=== PATIENT | female | born 1975 | race Caucasian/White ===

== ENCOUNTER 2020-03-30 00:03 | Inpatient (IN) | payer MEDICARE, MEDICAID ==
[~2020-03-30] VITALS: Ht 175.3 cm; Wt 150.0 kg
[2020-03-30] MEDS ORDERED: dexamethasone sod phosphate 10mg/ml inj IV STA (00:25)
[2020-03-30] MEDS ORDERED: CefTRIAXone/D5W-Rocephin 1gm 50 ML IV ONE (00:25)
[2020-03-30] MEDS ORDERED: normal saline 1000ML IV soln IVB ONE (00:25)
[2020-03-30] MEDS ORDERED: vancomycin/NS 1 GM ADD-VANTAGE 250 ML IV ONE (00:25)
[2020-03-30] MEDS ORDERED: ketamine 50 mg/ml 10ml vial IV ONE (00:35)
[2020-03-30] MEDS ORDERED: ketamine 10mg/ml 20ml inj IV ONE (00:35)
[2020-03-30 00:42] LABS: CLARITY,URINE CLOUDY (Clear); COLOR,URINE YELLOW (Yellow); GLUCOSE, URINE NEGATIVE (Neg); KETONES,URINE NEGATIVE (Neg); LEUKOCYTE ESTERASE ,URINE SMALL (Neg); NITRITES, URINE POSITIVE (Neg); OCCULT BLOOD,URINE LARGE (Neg); PROTEIN,URINE 100 mg/dl (Neg); UROBILINOGEN,URINE 0.2 E.U/dL (0.2-1.0)
[2020-03-30 00:43] LABS: BASOPHILS # (AUTO) 0.1 X10'3 (0-0.2); BASOPHILS % (AUTO) 0.5 % (0-1); EOSINOPHILS % (AUTO) 0.2 % (0-6); HEMATOCRIT 38.2 % (35.0-45.0); HEMOGLOBIN 12.8 g/dl (12.0-16.0); LYMPHOCYTES % (AUTO) 14.6 % (21-51); MEAN CORPUSCULAR HEMOGLOBIN 30.2 PG (27.0-31.0); MEAN CORPUSCULAR HGB CONC 33.6 g/dL (33.0-36.5); MEAN CORPUSCULAR VOLUME 90.1 FL (78-98); MEAN PLATELET VOLUME 8.7 FL (7.4-10.4); MONOCYTES # (AUTO) 1.2 X10'3 (0-0.9); MONOCYTES % (AUTO) 8.9 % (2-12); NEUTROPHILS # (AUTO) 10.5 X10'3 (1.8-7.7); NEUTROPHILS % (AUTO) 75.8 % (42-75); PLATELET COUNT 331 X10'3 (140-440); RED BLOOD COUNT 4.24 X10'6 (4.20-5.60); WHITE BLOOD COUNT 13.8 X10'3 (4.5-11.0)
[2020-03-30 00:49] LABS: UA COLLECTION TYPE STRAIGHT CATH
[2020-03-30 00:50] LABS: BACTERIA,URINE 4+ /HPF (Neg); RBC,URINE 20-50 /HPF (0-2); WBC,URINE TNTC /HPF (0-4)
[2020-03-30 00:51] LABS: SQUAMOUS EPITHELIAL CELL,UR MODERATE /LPF (FEW); WBC CASTS 0-3 /LPF (NEGATIVE)
[2020-03-30 00:52] LABS: ACETAMINOPHEN < 2.0 UG/ML (10-30); ALANINE AMINOTRANSFERASE 92 U/L (12-78); ALKALINE PHOSPHATASE 131 IU/L (46-116); ANION GAP 17 (8-16); ASPARTATE AMINO TRANSFERASE 66 U/L (10-37); BILIRUBIN,TOTAL 0.4 MG/DL (0.1-1.0); BLOOD UREA NITROGEN 31 MG/DL (7-18); BUN/CREATININE RATIO 7.6 (6.6-38.0); CALCIUM 8.7 MG/DL (8.5-10.1); CHLORIDE 101 MMOL/L (99-107); CREATININE 4.08 MG/DL (0.40-0.90); ETHANOL < 0.010 GM/DL (0.0-0.010); GLUCOSE 174 MG/DL (70-104); POTASSIUM 3.5 MMOL/L (3.5-5.1); SODIUM 136 MMOL/L (135-145); TOTAL CARBON DIOXIDE 18.2 MMOL/L (24-32); TOTAL PROTEIN 8.1 G/DL (6.4-8.2); eGFR 12 ML/MIN
[2020-03-30 01:01] LABS: URINE AMPHETAMINE SCREEN NEGATIVE (Neg); URINE BARBITUATE SCREEN NEGATIVE (Neg); URINE BENZODIAZEPINES SCREEN NEGATIVE (Neg); URINE CANNABINOID SCREEN NEGATIVE (Neg); URINE COCAINE SCREEN NEGATIVE (Neg); URINE METHADONE SCREEN NEGATIVE (Neg); URINE OPIATE SCREEN NEGATIVE (Neg); URINE PHENCYCLIDINE SCREEN NEGATIVE (Neg)
[2020-03-30] MEDS ORDERED: potassium Cl 20 mEq SR tablet PO PRN (02:15)
[2020-03-30] MEDS ORDERED: potassium CL 10mEq/100ml bag 100 ML IV PRN ×2 (02:15)
[2020-03-30] MEDS ORDERED: HYDROcodone/acetaminophen 10/325mg tab PO PRN (02:15)
[2020-03-30] MEDS ORDERED: magnesium Cl slow-release 64mg tablet PO PRN (02:15)
[2020-03-30] MEDS ORDERED: normal saline 1000ml 1,000 ML IV SCH (02:15)
[2020-03-30] MEDS ORDERED: HYDROcodone/acetaminophen 5mg/325mg tablet PO PRN (02:15)
[2020-03-30] MEDS ORDERED: magnesium 4gm in 100ml NS 100 ML IV PRN (02:15)
[2020-03-30] MEDS ORDERED: mag hydrox/Alum hydrox/simeth 30ml oral suspension PO PRN (02:15)
[2020-03-30] MEDS ORDERED: ondansetron/PF 4mg/2ml inj IV PRN (02:15)
[2020-03-30] MEDS ORDERED: acetaminophen 325mg tablet PO PRN (02:15)
[2020-03-30] MEDS ORDERED: magnesium 2GM in 50ml NS 50 ML IV PRN (02:15)
[2020-03-30] MEDS: normal saline 1000ml 1,000 ML IV SCH ×2 (02:34→17:05)
[2020-03-30] MEDS ORDERED: famotidine 20mg tablet PO PRN (02:45)
[2020-03-30] MEDS ORDERED: dextrose ORAL solution 15 GM/59 ML bottle PO PRN ×2 (02:55)
[2020-03-30] MEDS ORDERED: MESSAGE TO PHARMACY PO ONE (02:55)
[2020-03-30] MEDS ORDERED: glucagon, human recombinant 1mg kit SUBCUT PRN (02:55)
[2020-03-30] MEDS ORDERED: dextrose 50%-water 50ml dispensing syringe IV PRN ×2 (02:55)
[2020-03-30 03:07] LABS: ALANINE AMINOTRANSFERASE 87 U/L (12-78); ALBUMIN 3.6 G/DL (3.4-5.0); ALBUMIN/GLOBULIN RATIO 0.9 (1.1-1.5); ALKALINE PHOSPHATASE 122 IU/L (46-116); ANION GAP 17 (8-16); ASPARTATE AMINO TRANSFERASE 67 U/L (10-37); BILIRUBIN,TOTAL 0.4 MG/DL (0.1-1.0); BLOOD UREA NITROGEN 28 MG/DL (7-18); BUN/CREATININE RATIO 8.6 (6.6-38.0); CHLORIDE 103 MMOL/L (99-107); CREATININE 3.26 MG/DL (0.40-0.90); GLUCOSE 196 MG/DL (70-104); SODIUM 137 MMOL/L (135-145); TOTAL CARBON DIOXIDE 17.2 MMOL/L (24-32); TOTAL PROTEIN 7.7 G/DL (6.4-8.2); eGFR 15 ML/MIN
[2020-03-30 03:13] LABS: HEMOGLOBIN A1C 7.1 % (4.5-6.2)
[2020-03-30 06:00] VITALS: BP 155/62
--- NOTE | 2020-03-30 06:05 | NUR ---
Patient in room ORTHO 4018. I have received report from González and had the opportunity to ask questions and assume patient care.
--- NOTE | 2020-03-30 06:17 | NUR ---
Problems reprioritized. Patient report given, questions answered & plan of care reviewed with Karina PEREZ.
[2020-03-30] MEDS: heparin, porcine 5000 units/ml vial SQ SCH ×3 (08:00→23:48)
[2020-03-30] MEDS: K and/or MAG REPLACEMENT MC SCH ×2 (08:00→19:14)
[2020-03-30] MEDS: CefTRIAXone/D5W-Rocephin 1gm 50 ML IV SCH (08:00)
[2020-03-30] MEDS: docusate sod 100mg capsule PO SCH ×2 (08:00→19:13)
[2020-03-30] MEDS: insulin Lispro (HumaLOG) vial - multi-dose SQ SCH ×3 (09:17→19:16)
--- NOTE | 2020-03-30 09:25 | NUR ---
Rocephin, heparin and colace all given by rubber goods cutter finisher during my break, meds did not save after scanning.
[2020-03-30 10:00] VITALS: BP 151/84
--- NOTE | 2020-03-30 11:28 | NUR ---
Problems reprioritized. Patient report given, questions answered & plan of care reviewed with
--- NOTE | 2020-03-30 14:37 | NUR ---
DM Consult: A1C 7.1. Pt admit w/ sepsis secondary to UTI, ALOC, GERD, transaminitis, and renal failure unsure if acute vs chronic per MD. No DM hx; ZENON d/w RN who reports pt slightly more alert this AM and able to confirm not new DX. Pt aware of DM hx. Written DM ed w/ RD contact information placed in pt chart. Pt advanced to carb controlled/mechanical soft/grind all/thin diet per [employer]/MD PO 100% lunch today. Pending physical assessment and scaled wt this admit; ZENON d/w RN regarding scaled wt to further determine wt hx. No BM yet this admit. Will continue to monitor for additional protein needs given DX; may benefit from double protein servings TIDWM given size if good PO persists. Rec: 1. continue carb controlled/mechanical soft/grind all/thin liquid diet per [employer]/MD recs 2. monitor for additional protein needs pending PO hx and scaled wt 3. routine bowel care 4. scaled wts Addendum: 03/30/20 at [address] Amended: Links added.
--- NOTE | 2020-03-30 17:23 | NUR ---
Marv () - [phone] Denny (Son) - [phone]
[2020-03-30 18:00] VITALS: BP 162/80
[2020-03-30] MEDS: lactobacillus rhamnosus 10,000 MMU CELLS/CAPSULE PO SCH (19:13)
[2020-03-30] MEDS ORDERED: LIDOcaine 2% 10ml TOPICAL JELLY (Urojet) TP ONE (20:50)
[2020-03-30] MEDS: insulin glargine (Lantus) pen - multi-dose SQ SCH (21:29)
[2020-03-30 22:00] VITALS: BP 165/61
[2020-03-31] MEDS ORDERED: acetaminophen 325mg tablet PO PRN (01:35)
[2020-03-31] MEDS: normal saline 1000ml 1,000 ML IV SCH ×3 (01:39→16:22)
[2020-03-31 06:00] VITALS: BP 150/79
--- NOTE | 2020-03-31 06:05 | NUR ---
Patient in room ORTHO 4018. I have received report from Jennifer Turner and had the opportunity to ask questions and assume patient care.
[2020-03-31 06:35] LABS: BASOPHILS % (AUTO) 0.6 % (0-1); EOSINOPHILS % (AUTO) 0.6 % (0-6); HEMATOCRIT 34.5 % (35.0-45.0); HEMOGLOBIN 11.4 g/dl (12.0-16.0); LYMPHOCYTES # (AUTO) 1.9 X10'3 (1.1-4.8); LYMPHOCYTES % (AUTO) 24.2 % (21-51); MEAN CORPUSCULAR HEMOGLOBIN 29.6 PG (27.0-31.0); MEAN CORPUSCULAR VOLUME 89.8 FL (78-98); MONOCYTES # (AUTO) 0.6 X10'3 (0-0.9); NEUTROPHILS # (AUTO) 5.2 X10'3 (1.8-7.7); NEUTROPHILS % (AUTO) 66.6 % (42-75); PLATELET COUNT 275 X10'3 (140-440); RED BLOOD COUNT 3.84 X10'6 (4.20-5.60); RED CELL DISTRIBUTION WIDTH 14.4 % (11.5-14.5); WHITE BLOOD COUNT 7.8 X10'3 (4.5-11.0)
[2020-03-31 06:47] LABS: ALANINE AMINOTRANSFERASE 145 U/L (12-78); ALBUMIN/GLOBULIN RATIO 0.8 (1.1-1.5); ALKALINE PHOSPHATASE 106 IU/L (46-116); ANION GAP 12 (8-16); ASPARTATE AMINO TRANSFERASE 257 U/L (10-37); BILIRUBIN,TOTAL 0.5 MG/DL (0.1-1.0); BLOOD UREA NITROGEN 19 MG/DL (7-18); BUN/CREATININE RATIO 18.8 (6.6-38.0); CALCIUM 8.2 MG/DL (8.5-10.1); CHLORIDE 102 MMOL/L (99-107); CREATININE 1.01 MG/DL (0.40-0.90); GLUCOSE 150 MG/DL (70-104); SODIUM 136 MMOL/L (135-145); TOTAL PROTEIN 6.6 G/DL (6.4-8.2); eGFR 59 ML/MIN
[2020-03-31 06:49] LABS: POTASSIUM 3.2 MMOL/L (3.5-5.1)
[2020-03-31] MEDS: CefTRIAXone/D5W-Rocephin 1gm 50 ML IV SCH (07:49)
[2020-03-31] MEDS: K and/or MAG REPLACEMENT MC SCH ×2 (07:49→20:52)
[2020-03-31] MEDS: docusate sod 100mg capsule PO SCH ×2 (07:51→20:00)
[2020-03-31] MEDS: lactobacillus rhamnosus 10,000 MMU CELLS/CAPSULE PO SCH ×2 (07:51→20:51)
[2020-03-31] MEDS: heparin, porcine 5000 units/ml vial SQ SCH ×3 (07:52→23:54)
[2020-03-31] MEDS: potassium Cl 20 mEq SR tablet PO PRN ×3 (07:58→17:14)
[2020-03-31] MEDS: insulin Lispro (HumaLOG) vial - multi-dose SQ SCH ×3 (08:56→18:43)
[2020-03-31 10:00] VITALS: BP 159/79
--- NOTE | 2020-03-31 13:55 | NUR ---
PAGER ID: [phone] MESSAGE: Jenny Birch on ortho, Ms. Palma in 4017 has gram positive cocci in clusters, aerobic right arm culture taken 03/30, just
[2020-03-31 18:00] VITALS: BP 143/62
--- NOTE | 2020-03-31 18:33 | NUR ---
Problems reprioritized. Patient report given, questions answered & plan of care reviewed with Jennifer Turner
[2020-03-31] MEDS: insulin glargine (Lantus) pen - multi-dose SQ SCH (20:55)
[2020-03-31 22:00] VITALS: BP 157/79
--- NOTE | 2020-04-01 00:44 | NUR ---
Assisted patient back to bed from bathroom after she had pulled the call light. Patient able to ambulate with stand by assistance using a front wheel walker without incident back to bed. After patient was back in bed she yelled at this nurse stating she knows that we are talking about her and that she is not crazy. She knows what we think of her. Attempt was made to reassure patient that we were not discussing her or her care at the nursing station. The patient went on to state that she better be discharged tomorrow or her would hear about it and the [place] police department better not pull them over. Patient was able to verbalize upon questioning that she was at [facility] in [place]. Again attempt was made to inform patient that our goal here was for her to well enough tomorrow to be discharged. Patient verbalized that she was not convinced and would not discuss it further with me at this time. Educated patient to use her call light if she need anything else. Call light within reach at this time. Will continue to monitor.
--- NOTE | 2020-04-01 01:29 | NUR ---
I heard the patient making noises around in her room and I went to investigate and she became belligerent with me. She was yelling about the hospital conspiring against her and her and she wasn't going to stand for it. I asked her if she had a bad dream, and she started cursing at me that no that wasn't the issue. I asked her if she wanted me to call her and she said no because it's 0130 am and not to wake him up. I informed her that we will have her talk to the physician in the am and try to resolved the issues.
--- NOTE | 2020-04-01 03:15 | NUR ---
Hall patient talking in room and went to see if she needed anything, patient again stated she was hearing staff talk about her but would not elaborate on what she was hearing. Attempt was made to ease patient's mind that we were discussing other patient's we are caring for on the floor. This nurse tried to see if the patient had a home medication list as there has been no medication reconciliation completed. The patient said she has too many medications to list and her doctor knows what they are. Patient denied having any list with her and she stated my meds are all on the houseboat with my . Patient denied having any needs or questions at this time. Verbalized understanding that call light was within reach for her to use if she need anything from staff.
[2020-04-01] MEDS: normal saline 1000ml 1,000 ML IV SCH (04:15)
[2020-04-01 06:30] VITALS: BP_SYST 159; BP_SYST 168; BP_DIAS 74; BP_DIAS 82
--- NOTE | 2020-04-01 06:35 | NUR ---
Report given to Ivone PEREZ.
[2020-04-01 06:53] LABS: BASOPHILS # (AUTO) 0.1 X10'3 (0-0.2); EOSINOPHILS # (AUTO) 0.1 X10'3 (0-0.9); EOSINOPHILS % (AUTO) 2.1 % (0-6); HEMATOCRIT 36.6 % (35.0-45.0); HEMOGLOBIN 12.2 g/dl (12.0-16.0); LYMPHOCYTES # (AUTO) 1.5 X10'3 (1.1-4.8); LYMPHOCYTES % (AUTO) 21.5 % (21-51); MEAN CORPUSCULAR HEMOGLOBIN 29.8 PG (27.0-31.0); MEAN CORPUSCULAR HGB CONC 33.3 g/dL (33.0-36.5); MEAN CORPUSCULAR VOLUME 89.4 FL (78-98); MEAN PLATELET VOLUME 8.6 FL (7.4-10.4); MONOCYTES # (AUTO) 0.6 X10'3 (0-0.9); MONOCYTES % (AUTO) 8.7 % (2-12); NEUTROPHILS # (AUTO) 4.6 X10'3 (1.8-7.7); NEUTROPHILS % (AUTO) 66.7 % (42-75); PLATELET COUNT 277 X10'3 (140-440); RED BLOOD COUNT 4.09 X10'6 (4.20-5.60); RED CELL DISTRIBUTION WIDTH 14.1 % (11.5-14.5); WHITE BLOOD COUNT 6.9 X10'3 (4.5-11.0)
[2020-04-01 07:13] LABS: ALANINE AMINOTRANSFERASE 193 U/L (12-78); ALBUMIN 3.2 G/DL (3.4-5.0); ALBUMIN/GLOBULIN RATIO 0.9 (1.1-1.5); ALKALINE PHOSPHATASE 111 IU/L (46-116); ANION GAP 14 (8-16); ASPARTATE AMINO TRANSFERASE 261 U/L (10-37); BILIRUBIN,TOTAL 0.4 MG/DL (0.1-1.0); BLOOD UREA NITROGEN 16 MG/DL (7-18); BUN/CREATININE RATIO 19.8 (6.6-38.0); CHLORIDE 105 MMOL/L (99-107); CREATININE 0.81 MG/DL (0.40-0.90); GLUCOSE 151 MG/DL (70-104); POTASSIUM 3.5 MMOL/L (3.5-5.1); SODIUM 138 MMOL/L (135-145); TOTAL CARBON DIOXIDE 19.2 MMOL/L (24-32); TOTAL PROTEIN 6.9 G/DL (6.4-8.2); eGFR 76 ML/MIN
[2020-04-01] MEDS: heparin, porcine 5000 units/ml vial SQ SCH (08:00)
[2020-04-01] MEDS ORDERED: VANCOMYCIN LEVEL IV ONE (08:30)
[2020-04-01] MEDS ORDERED: ciprofloxacin lact 400MG/200ML 200 ML IV SCH (08:55)
[2020-04-01] MEDS: insulin Lispro (HumaLOG) vial - multi-dose SQ SCH (09:46)
[2020-04-01] MEDS: lactobacillus rhamnosus 10,000 MMU CELLS/CAPSULE PO SCH (09:47)
[2020-04-01] MEDS: docusate sod 100mg capsule PO SCH (09:47)
[2020-04-01 10:00] VITALS: BP 159/82
--- NOTE | 2020-04-01 10:06 | NUR ---
PAGER ID: [phone] MESSAGE: Kassandra [phone] re Gracie in 4017- she has no iv, is there any way we can change her cipro to PO?
--- NOTE | 2020-04-01 10:11 | NUR ---
Per pt she gets meds from [facility] pharmacy on [address]
[2020-04-01] MEDS ORDERED: ciprofloxacin 250mg tablet PO SCH (10:25)
[2020-04-01] MEDS ORDERED: SULF1TAB49 PO (14:20)
[2020-04-01] MEDS ORDERED: LEVO500T89 PO (14:20)
== END 2020-04-01 16:35 | disposition home or self-care (01) | DRG 871 ==
LOC: ER 00:04 → UNDOADMIN 02:15 → ED HOLD 02:15 → ORTHO 4S 05:34
PROVIDERS: ADMIT Family Medicine; ATTEND Family Medicine
DX: A41.9 Sepsis, unspecified organism (principal); G93.41 Metabolic encephalopathy; N17.0 Acute kidney failure with tubular necrosis; N39.0 Urinary tract infection, site not specified; Z68.42 Body mass index [BMI] 45.0-49.9, adult; F31.9 Bipolar disorder, unspecified; G35 Multiple sclerosis; I10 Essential (primary) hypertension; B96.20 Unspecified Escherichia coli [E. coli] as the cause of diseases classified elsewhere; E66.01 Morbid (severe) obesity due to excess calories; I12.9 Hypertensive chronic kidney disease with stage 1 through stage 4 chronic kidney disease, or unspecified chronic kidney disease; K21.9 Gastro-esophageal reflux disease without esophagitis; K76.0 Fatty (change of) liver, not elsewhere classified; N18.9 Chronic kidney disease, unspecified
CPT/HCPCS: 36415; 70450; 71045; 74176; 76700; 80053; 80305; 80320; 80329; 81001; 82140; 82948; 83036; 83605; 83735; 85025; 87040; 87077; 87081; 87088; 87186; 92508; 92616; 96365; 96367; 96375; 97110; 97116; 97162; 97530; 99285; G0378; J0696; J1100; J1644; J1815; J3370; J7030